=== PATIENT | male | born 1955 | race Caucasian/White ===

== ENCOUNTER 2021-11-28 19:10 | Emergency (ER) | payer MEDICARE, OTHER ==
[2021-11-28 21:25] LABS: BASOPHIL 0.5 % (0-2); EOSINOPHIL 0.9 % (0-7); HCT 51.2 % (42.0-52.0); HGB 18.1 g/dl (13.2-18.0); LYMPHOCYTE 15.1 % (15-48); MCH 32.8 pg (25.0-31.0); MCHC 35.4 g/dL (32.0-36.0); MCV 92.9 fL (78.0-100.0); MONOCYTE 8.8 % (0-12); MPV 9.1 fL (6.0-9.5); NEUTROPHIL 74.3 % (41-80); NRBC 0; PLT 232 K/uL (150-400); RBC 5.51 M/uL (4.70-6.00); RDW 12.6 % (11.5-14.0)
[2021-11-28 21:46] LABS: BUN/CREAT RATIO (CALC) 16.2 RATIO; CREATININE 0.74 mg/dL (0.67-1.17); POTASSIUM 3.1 mmol/L (3.5-5.1)
== END 2021-11-29 00:44 | disposition home or self-care (01) ==
LOC: FER 19:10
PROVIDERS: Nurse Practitioner Family
DX: I10 Essential (primary) hypertension (principal); R77.8 Other specified abnormalities of plasma proteins; E87.6 Hypokalemia; J44.9 Chronic obstructive pulmonary disease, unspecified; F17.210 Nicotine dependence, cigarettes, uncomplicated; Z88.2 Allergy status to sulfonamides; Z88.1 Allergy status to other antibiotic agents; Z88.8 Allergy status to other drugs, medicaments and biological substances
CPT/HCPCS: 36415; 71045; 71250; 80048; 84484; 85025; 93005